=== PATIENT | male | born 1995 | race Caucasian/White ===

== ENCOUNTER 2017-08-24 20:43 | Emergency (ER) | payer SELFPAY ==
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
[2017-08-24] MEDS: MORPHINE SULFATE 4 MG/ML PREFILLED SYR IVP ONE (21:35)
[2017-08-24] MEDS: MIDAZOLAM HCL 5 MG/5 ML VIAL IVP ONE (21:40)
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
[2017-08-24 23:36] VITALS: BP 151/80
== END 2017-08-24 22:43 | disposition home or self-care (01) ==
LOC: ED 20:43
DX: S53.104A Unspecified dislocation of right ulnohumeral joint, initial encounter (principal); X58.XXXA Exposure to other specified factors, initial encounter
CPT/HCPCS: 73070; 73080; J2250; J2270; 96374; 96375; 99283; S1016